=== PATIENT | male | born 1965 | race Two or more races ===

== ENCOUNTER 2023-03-15 13:05 | Emergency (ER) | payer OTHER, SELFPAY ==
--- NOTE | ~2023-03-15 | XR_ITS ---
EXAMINATION: XR HAND, LEFT CLINICAL INFORMATION: Third finger laceration. COMPARISON: None available. TECHNIQUE: PA, lateral, and oblique views of the left hand. An indicator arrow points to the third digit. FINDINGS: Mild soft tissue swelling is seen. There is no acute fracture or dislocation. A tiny density is seen superficially in the soft tissues superficial to the ulnar aspect of the proximal interphalangeal joint of the third digit. There is no acute fracture or dislocation. The carpal bones are normally aligned. The distal radius and ulna are intact. XR/XR hand LT min 3V IMPRESSION: 1. Mild soft tissue swelling without acute underlying osseous abnormality. 2. Tiny density superficially in the soft tissues superficial to the ulnar aspect of the proximal interphalangeal joint of the third digit is of indeterminate age. A radiopaque foreign body cannot be excluded.
[2023-03-15 13:40] VITALS: BP 115/71; PULSE 58; RESP 18; TEMP 37; O2SAT 98; BMI 27.4
--- NOTE | 2023-03-15 13:40 | ED.GENADULT ---
HPI - General Adult General Chief complaint: Wound/Laceration Stated complaint: l hand laceration Time Seen by Provider: 03/15/23 17:22 History of Present Illness HPI narrative: Patient complains of lacerations to ring and middle fingers of the left hand from a sharp piece of metal at home, no numbness no weakness no tingling, no other complaint Related Data Allergies Allergy/AdvReac Type Severity Reaction Status Date / Time No Known Allergies Allergy Verified 03/15/23 13:43 [No Known Allergies*] PENDING SALE TO [facility] Past Medical History Source: nursing notes reviewed Social History Social History Smoked in Last 30 Days: No Use of substances other than those prescribed or required for medical reasons: No Advance Directives: No Advance Directives Information Provided: Yes Physical Exam ED Vital Signs: Vital Signs - 24 hr 03/15/23 13:40 Temperature 98.6 F Pulse Rate 58 Respiratory Rate 18 Blood Pressure 115/71 Pulse Oximetry 98 Oxygen Delivery Method Room Air BMI result Body Mass Index 27.4 General appearance no acute distress Head normocephalic atraumatic Neck is supple Respiratory no distress Extremities full range of motion x4 including left hand Left hand had a 2 cm laceration gaping on the left middle finger but there was no tendon deficit on either extension or flexion, neurovascular intact distal, full range of motion The ring finger had a superficial laceration on the middle phalanx and again all tendon function normal neurovascular intact Course Course Course Narrative: This is an RME: Additional HPI, ROS, PE not included below will be deferred to primary provider. This is a [id number] presenting to the emergency department with a complaint of left third and fouth finger laceration which occurred today. He was moving a piece of metal and lacerated these two fingers. Has numbness/tingling in both fingertips, good ROM. Partial thickness laceration noted to third and fourth DIPs. Will need to be cleansed and will likely need sutures. unsure if TDAP is UTD. Plan: xray left hand and tdap ordered. The 4th finger did not need repair and a dressing was placed The 3rd finger procedure note the laceration was cleansed and irrigated Digital block with good anesthesia with 6 cc of 1% lidocaine Sutures were placed in 2 cm left 3rd finger laceration, finger was moving normally with full tendon function, bleeding controlled and dressing applied Medications Administered Discontinued Medications Generic Name Dose Route Start Last Admin Trade Name Freq PRN Reason Stop Dose Admin Diphtheria/Tetanus/Acell Pertussis 0.5 ml 03/15/23 13:40 03/15/23 18:25 Diphth,Pertus(Acell),Tet Adult 0.5 Ml Syringe IM 03/15/23 13:41 0.5 ml .ONCE ONE Administration Lidocaine HCl 5 ml 03/15/23 18:17 03/15/23 18:26 Lidocaine Hcl 1 % Mpf 5 Ml Vial SUBCUT 03/15/23 18:18 5 ml ONCE ONE Administration Lidocaine HCl 5 ml 03/15/23 18:17 03/15/23 18:26 Lidocaine Hcl 1 % Mpf 5 Ml Vial SUBCUT 03/15/23 18:18 5 ml ONCE ONE Administration Discharge Plan Discharge Clinical Impression: Laceration Patient Disposition: Home, Self-Care Additional Instructions: Stitches out in 7 days Return any time redness swelling any sign of infection You got a tetanus shot today Interventions: ED Discharge Assessment Last Done: 03/15/23 19:02 Discharge Date/Time: 03/15/23 19:02
[2023-03-15] MEDS: Diphth,Pertus(ACell),Tet Adult 0.5 ML SYRINGE IM (18:25)
[2023-03-15] MEDS: Lidocaine HCl 1 % MPF 5 ML VIAL SUBCUT ×2 (18:26)
== END 2023-03-15 19:02 | disposition home or self-care (01) ==
PROVIDERS: Emergency Provider Internal Medicine
DX: S61.412A Laceration without foreign body of left hand, initial encounter (principal); S60.512A Abrasion of left hand, initial encounter; W26.9XXA Contact with unspecified sharp object(s), initial encounter; Y93.9 Activity, unspecified; Y92.009 Unspecified place in unspecified non-institutional (private) residence as the place of occurrence of the external cause; Y99.9 Unspecified external cause status; Z23 Encounter for immunization
CPT/HCPCS: 12041; 73130; 90471; 90715; 99284

== ENCOUNTER → 2023-09-21 09:15 | Day surgery (SDC) | payer OTHER, SELFPAY ==
[2023-09-19 12:19] VITALS: BMI 25.4
--- NOTE | 2023-09-21 10:23 | ECG_ITS ---
Test Reason : arrythmia Blood Pressure : / mmHG Vent. Rate : 082 BPM Atrial Rate : 082 BPM P-R Int : 162 ms QRS Dur : 096 ms QT Int : 380 ms P-R-T Axes : 065 -29 032 degrees QTc Int : 443 ms Normal sinus rhythm Normal ECG When compared with ECG of 10-NOV-2017 02:01, Vent. rate has increased BY 31 BPM Nonspecific T wave abnormality no longer evident in Anterolateral leads Referred By: Lisa Osorio Electronically Signed By:ALFRED BAKER
[2023-09-21 10:24] VITALS: BP 70/51; PULSE 23; RESP 18; TEMP 36.2; O2SAT 98
[2023-09-21 10:43] LABS: Glucose, Whole Blood 89 mg/dL (60-115)
--- NOTE | 2023-09-21 11:48 | PC.NURSE ---
Pt arrived to pre-op for planned EGD procedure with Dr. Awad. Pt ambulated into unit with no s/s of distress. Medical hx reviewed. Pt proceeded to prepared for procedure and was placed on monitor. Pt resting in bed and was noted to be bradycardic in the 50's. Pt then had a recorded heart rate drop to 23. Monitor appeared to be junctional. This service writer engaged pt in conversation and heart rate did not improve. Pt was diaphoretic and c/o abdominal discomfort. Pt denies chest pain at this time. POC 89. Dr Osorio bedside and administered 0.5mg of Atropine. BP at this time 70/51. 02 2L placed via NC and HOB elevated. Heart rate still remained low. Dr Man then administered 10 mg IV Ephedrine. Pt because nauseous and was vomiting. IV Zofran 4mg administered with positive effect. 12 lead EKG performed and read bedside by Dr. Osorio. At this time Dr Osorio contacted Dr Howard for transfer to ED. Pt transported to ED with pacer pads in place by this service writer and Dr Osorio. Bedside report given to Qi BELTRAN in ED. This service writer called and updated with current status. All belongings transported to ED with pt.
== END ==
PROVIDERS: Visit Provider Internal Medicine Gastroenterology
DX: R10.10 Upper abdominal pain, unspecified (principal); Z53.09 Procedure and treatment not carried out because of other contraindication; R00.1 Bradycardia, unspecified
CPT/HCPCS: 82947; 93005; J2405

== ENCOUNTER 2023-09-21 10:45 | Observation (INO) | payer OTHER, SELFPAY ==
[2023-09-21 10:48] VITALS: BP 134/69; PULSE 71; RESP 20; TEMP 36.8; O2SAT 96; BMI 26.6
--- NOTE | 2023-09-21 11:03 | ECG_ITS ---
Test Reason : bradycardia Blood Pressure : / mmHG Vent. Rate : 074 BPM Atrial Rate : 074 BPM P-R Int : 136 ms QRS Dur : 098 ms QT Int : 396 ms P-R-T Axes : 005 -08 031 degrees QTc Int : 439 ms Normal sinus rhythm Normal ECG When compared with ECG of 21-SEP-2023 10:22, No significant change was found Referred By: Mark Howard Electronically Signed By:ALFRED BAKER
--- NOTE | 2023-09-21 11:05 | ED.GENADULT ---
HPI - General Adult General Chief complaint: General Medical Stated complaint: Low hr/Low blood pressure Time Seen by Provider: 09/21/23 10:56 Source: patient, RN notes reviewed and other (anesthesiology) Mode of arrival: wheelchair Limitations: no limitations History of Present Illness HPI narrative: Patient with bradycardia to 20 with hypotension while in preop. Anesthesia gave him atropine and phenylephrine. He recently was on a Holter monitor Onset (ago): minute(s) Severity: severe Related Data Home Medications Medication Instructions Recorded Confirmed omeprazole 20 mg capsule,delayed 20 mg PO DAILY 09/19/23 09/19/23 release sertraline 100 mg tablet 100 mg PO DAILY 09/19/23 09/19/23 Allergies Allergy/AdvReac Type Severity Reaction Status Date / Time No Known Allergies Allergy Verified 09/21/23 09:44 [No Known Allergies*] Review of Systems Review of Systems: Yes all other systems are reviewed and are negative Neurologic: Denies Sensory deficit (Neuro) PMFSH Past Medical History Medical History Palpitations Psoriasis Hyperlipidemia PTSD (post-traumatic stress disorder) Depression Hypercalcemia Surgical History S/P left inguinal herniorrhaphy Hx of elbow surgery H/O colonoscopy Social History Social History Patient Tobacco Use Status: Current someday Tobacco user Cigarettes Per Day: 2 Smoked in Last 30 Days: No Use of substances other than those prescribed or required for medical reasons: No Advance Directives: No Advance Directives Information Provided: Yes Physical Exam ED Vital Signs: Vital Signs - 24 hr 09/21/23 10:48 Temperature 98.3 F Pulse Rate 71 Respiratory Rate 20 Blood Pressure 134/69 Pulse Oximetry 96 Oxygen Delivery Method Room Air BMI result Body Mass Index 26.6 Const General: healthy appearing Nutritional Appearance: average body habitus Orientation/consciousness: oriented to person and patient oriented x3 Limitations: no limitations HENMT Head: Yes normal to inspection Ears: external ears normal General nose exam: Normal external nose present Mouth: Normal oral and palatal mucosa present and oropharynx normal Throat: Yes posterior oropharynx normal Eyes General: appearance normal, both eyes and all related structures Neck Neck: Yes normal visual inspection Chest Chest palpation & inspection: normal inspection of the chest Resp Auscultation: clear to auscultation bilaterally Cardio Jugular venous distension: no JVD Rate: regular rate Rhythm: regular rhythm Heart sounds: S1 normal heart sound present and S2 normal heart sound present GI Inspection: Yes normal to inspection Palpation (GI): Soft to palpation, nontender and No hepatosplenomegaly present Auscultation: normal bowel sounds General: Yes no CVA tenderness Back/Spine/Pelvis Back: no CVA tenderness Skin General skin exam: no rashes or lesions noted Neuro General: oriented to person and patient oriented x3 Cranial nerves: Yes CN's II-XII intact bilaterally Motor exam (neuro): 5/5 motor strength present throughout Sensory Exam: No Sensory deficit (Neuro) Extrem General: Yes normal to inspection Psych Appearance: grossly normal Course Reevaluation(s) Reevaluation #1: Sent to the ED from the OR will admit Time: 12:05 Medical Decision Making Differential Diagnosis Differential Diagnoses: The differential diagnosis associated with the presentation includes (bradycardia, sick sinus, hypotension) Admission/Observation Consideration of admission/observation: Escalation of care including admission/observation considered (upon arrival patient was considered for admission) Consult Healthcare Provider Management of the patient was discussed with: Hospitalist and Paint And Table Edger (cardiology, anesthesia) Lab Data MDM Lab Attestation statement: I reviewed the patient's lab results. 09/21/23 11:47 09/21/23 11:47 Labs: Lab Results 09/21/23 Range/Units 11:47 WBC 9.5 (4.8-10.8) X10*3/uL RBC 4.83 (4.60-5.80) X10*6/uL Hgb 13.0 L (14.0-18.0) g/dl Hct 40.1 L (42.0-52.0) % MCV 83.0 (80.0-98.0) fL MCH 26.9 L (27.0-33.0) pg MCHC 32.4 (31.0-36.0) g/dl RDW 13.1 (11.0-16.0) % Plt Count 216 (160-400) X10*3/uL MPV 11.0 (9.4-12.4) fL Immature Gran % (Auto) 0.2 (0.0-0.4) % Neut % (Auto) 67.6 (45-73) % Lymph % (Auto) 25.1 (20-40) % [place] % (Auto) 5.8 (2-11) % Eos % (Auto) 1.1 (0-4) % Baso % (Auto) 0.2 (0-2) % Lymph # (Auto) 2.4 (1.2-4.9) X10*3/uL [place] # (Auto) 0.6 (0.1-1.2) X10*3/uL Eos # (Auto) 0.1 (0.0-0.4) X10*3/uL Baso # (Auto) 0.0 (0.0-0.2) X10*3/uL Abs Immat Gran (auto) 0.02 (0.00-0.03) X10*3/uL Absolute Neuts (auto) 6.4 (2.0-8.3) x10*3/uL Absolute Nucleated RBC 0.000 (0.0-0.012) X10*3/uL Nucleated RBC % (auto) 0.0 (0.0-0.2) /100WBC Independent Interpretation I performed an independent interpretation of an: EKG (sinus [address] or twave changes) Independent Historian Clinical information obtained from an independent historian. History obtained from or confirmed by: Spouse and Other (anesthesia) External Record Review External record reviewed: Outpatient record Discharge Plan Discharge Clinical Impression: Bradycardia Patient Disposition: Admitted As Inpatient
--- NOTE | 2023-09-21 11:39 | CA_ITS ---
Transthoracic Echocardiogram Patient (Last, First, Middle): Michael Oliveros, Gender: Male Date of : 1965 Age: 58 Procedure Date: 09/21/2023 Procedure Type: Transthoracic Echocardiogram Location: ER Height: 170.18 cm Weight: 77.11 kg BSA: 1.89 m2 Heart Rate: bpm BP: 113 / 60 mmHg Cement Finisher Apprentice: Referring MD: Mark Howard MD Symptoms: severe bradycardia Study Quality: Fair ECG Rhythm: Sinus Conclusions: - The left ventricular systolic function is normal. The calculated ejection fraction is 67% by biplane method. - No obvious valvular pathology seen on this study. Findings Left Ventricle Normal left ventricular cavity size. There is mildly increased left ventricular wall thickness. The left ventricular systolic function is normal. The calculated ejection fraction is 67% by biplane method. There is no evidence of regional wall motion abnormalities. Diastolic function is normal for age. Right Ventricle Mildly increased right ventricular cavity size. There is normal right ventricular systolic function. Atria Both atria are normal in size. Aortic Valve There is a normal trileaflet aortic valve. There is no aortic valve stenosis. There is no aortic valve regurgitation. Mitral Valve The mitral valve appears normal. There is trace mitral valve regurgitation. There is no mitral valve stenosis. Pulmonic Valve The pulmonic valve is likely normal. Tricuspid Valve Normal tricuspid valve structure. There is trace tricuspid valve regurgitation. There is no evidence of pulmonary hypertension. Great Vessels The asc aorta is normal in size. Venous The inferior vena cava is normal in size and collapses greater than 50% with inspiration. Pericardium/Pleural There is no evidence of pericardial effusion. Prior Study Comparison No prior study available for comparison. Recommendations, Care & Conclusions No obvious valvular pathology seen on this study. Measurements 2D Linear Measurements IVSd: 1.07 0.6-0.9/0.6-1.0 cm LVIDd: 4.73 3.9-5.3/4.2-5.9 cm LVIDd Index: 2.50 2.4-3.2/2.2-3.1 cm/m2 LVIDs: 3.13 2.0-3.6 cm LVPWd: 1.06 0.7-1.1 cm Ao Root: 2.80 2.1-3.5 cm LA Diam: 3.70 2.7-3.8/3.0-4.0 cm LAIDs Index: 1.96 1.5-2.3 cm/m2 LV Mass: 225.69 67-162/88-224 g LV Mass Index: 119.41 43-95/49-115 g/m2 LVOT Diam: 2.20 3.0+(-)1.3 cm 2D Systolic Function EF 4C: 62.30 >55% EF 2C: 69.40 >55% EF BiP: 67.00 >55% Mitral Valve MV Pk E: 0.77 MV PK A: 0.70 MV Decel Time: 175.00 E/A: 1.10 E'Lateral: 7.94 E'Medial: 8.92 E/E' Med: 8.60 E/E' Lat: 9.70 PHT: 51.00 MVA PHT: 4.31 Decel [place]: 4.39 Aortic Valve AoV Pk Edvin: 1.56 AoV Mn Edvin: 0.90 AoV VTI: 0.32 AoV Pk Grad: 10.00 Aov Mn Grad: 4.00 ANGE Cont.VTI: 3.31 LVOT LVOT Pk Edvin: 1.42 LVOT Mn Edvin: 0.85 LVOT VTI: 0.28 LVOT Pk Grad: 8.00 LVOT Mn Grad: 4.00 LVOT Diam: 2.20 LVOT Area: 3.80 Diastolic Function MV Pk E: 0.77 MV Pk A: 0.70 E/A: 1.10 E'Medial: 8.92 E/E' Med: 8.60 E' Laterial: 7.94 E/E' Lat: 9.70 Right Ventricle TAPSE (mm): 28.00 TVS' Edvin: 12.00 Tricuspid Valve TR Pk Edvin: 2.07 TR Pk Grad: 17.00 RA Press: 3.00 RVSP: 20.00 Great Vessels Aorta Ao Root-2D: 2.80 2.0-3.7 cm Ao Asc: 3.00 2.1-3.4 cm Pulmonary Valve PV Pk Edvin: 0.99 Peak PV Grad: 4.00 Updated in Other Vendor System with Status of Final Parag Boston MD electronically signed on 09/21/2023 3:53:34 PM with status of Final
[2023-09-21 11:52] LABS: MANUAL DIFF FLAG NO
[2023-09-21 11:56] LABS: Basophils Percent Auto 0.2 % (0-2); Eosinophils Absolute Auto 0.1 X10*3/uL (0.0-0.4); Eosinophils Percent Auto 1.1 % (0-4); Hematocrit 40.1 % (42.0-52.0); Imm Gran Abs Auto 0.02 X10*3/uL (0.00-0.03); Imm Gran Pct Auto 0.2 % (0.0-0.4); Lymphocytes Absolute Auto 2.4 X10*3/uL (1.2-4.9); Lymphocytes Percent Auto 25.1 % (20-40); Mean Corpuscular HGB Conc 32.4 g/dl (31.0-36.0); Mean Corpuscular Hemoglobin 26.9 pg (27.0-33.0); Monocytes Absolute Auto 0.6 X10*3/uL (0.1-1.2); Monocytes Percent Auto 5.8 % (2-11); Neutrophils Absolute Auto 6.4 x10*3/uL (2.0-8.3); Neutrophils Percent Auto 67.6 % (45-73); Platelet Count 216 X10*3/uL (160-400); Red Blood Count 4.83 X10*6/uL (4.60-5.80); Red Cell Distribution Width 13.1 % (11.0-16.0); White Blood Count 9.5 X10*3/uL (4.8-10.8)
[2023-09-21 12:11] LABS: Anion Gap 9 (12-20); Blood Urea Nitrogen 22 mg/dL (9-16); Calcium 9.1 mg/dL (8.4-10.2); Carbon Dioxide 30 mmol/L (22-29); Chloride 107 mmol/L (96-108); Creatinine Clr Calc Pharmacy 79.9; Estimated Glomerular Filt Rate > 60; Glucose Random 106 mg/dL (60-115); Potassium 4.1 mmol/L (3.3-5.1); Sodium 142 mmol/L (135-145)
--- NOTE | 2023-09-21 12:13 | PM.IMHP ---
History of Present Illness Date of Service: 09/21/23 Attending physician on admission: Troy Gonzalez Chief Complaint: Bradycardia, hypotension Pt is a 58-year-old male without any significant past who presents to the ED bradycardia as low as 23 and hypotension as low as 70/51 while in preop for an outpatient EGD. Patient had been having intermittent stomach pains and unintentional weight loss of 20 lb since July of 2022. PCP had ordered an outpatient CT that found colitis. Pt treated with antibiotics, however still experienced intermittent abdominal pain. Patient also said he had black colored stools 2-3 weeks ago. PCP then ordered an outpatient EGD to evaluate for possible gastric ulcers/peptic ulcer disease. While in preop patient was prepped, had IV inserted, and was awaiting going to the operating room when nursing noticed that patient was bradycardic into the 20s and hypotensive in the 70/50s. Patient became diaphoretic, ashen colored, and felt nauseous. Nursing staff noted that he seemed to be dropping his P waves and in a junctional rhythm on the monitor, though the rhythm strips did not capture this. Anesthesia was called in in the administered atropine 0.5 mg atropine, ephedrine 10 mg, and Zofran 4 mg. Patient currently resting comfortably in bed at time of interview and exam. Says he has a slight headache but otherwise has no acute medical complaints. Denies chest pain/pressure, palpitations. No shortness of breath. No nausea, vomiting. No lightheadedness or dizziness. Of note, patient states that he has been feeling intermittent palpitations for the past year or so. PCP had ordered a 30 day Holter monitor that was completed approximately 2 weeks ago. Patient has yet to receive any data about what the monitor recorded. He has not followed by Cardiology or any other specialist, but does see his PCP regularly. In the ED labs were grossly unremarkable. Negative troponin. Vital signs stable, including BP of 134/69 and HR of 71. Monitor with NSR. Initial EKG demonstrated normal sinus rhythm with rate of 82 and without evidence of significant ST elevation or depression, and repeat EKG 30 minutes later also showed normal sinus rhythm with rate of [address] elevations or depressions. Pt will be admitted to the hospital under observation for evaluation of symptomatic bradycardia and hypotension. Review of Systems Review of Systems: Bradycardia in the 20s Hypotension with SBP in 70s Diaphoresis Nausea Occasional palpitations for the past year Intermittent abdominal pain Unintentional weight loss for the past year plus [facility] Medical History Palpitations Psoriasis Hyperlipidemia PTSD (post-traumatic stress disorder) Depression Hypercalcemia Surgical History S/P left inguinal herniorrhaphy Hx of elbow surgery H/O colonoscopy Social History Patient Tobacco Use Status: Current someday Tobacco user Cigarettes Per Day: 2 Smoked in Last 30 Days: No Use of substances other than those prescribed or required for medical reasons: No Advance Directives: No Advance Directives Information Provided: Yes Meds Allergies Allergy/AdvReac Type Severity Reaction Status Date / Time No Known Allergies Allergy Verified 09/21/23 09:44 [No Known Allergies*] Home Medications Medication Instructions Recorded Confirmed Last Taken Type No Known Home Meds 09/21/23 09/21/23 Unknown History Physical Exam Vital Signs and Narrative: Vital Signs: Last Vital Signs Temp 98.3 F 09/21/23 10:48 Pulse 71 09/21/23 10:48 Resp 20 09/21/23 10:48 BP 134/69 09/21/23 10:48 Pulse Ox 96 09/21/23 10:48 O2 Del Method Room Air 09/21/23 10:48 BMI result Body Mass Index 26.6 Constitutional: Alert, in no acute distress. Mental Status: Oriented to person, place and time. Eyes: Pupils are equal, round, and reactive to light. Ear, Nose, and Throat: Oropharynx clear, mucous membranes moist. Ears and nose without deformities. Trachea midline. Respiratory: Clear to auscultation bilaterally. No wheezing, rales, or rhonchi. Cardiovascular: S1, S2 regular. No murmurs, rubs, or gallops. Gastrointestinal: Abdomen soft, non-tender, non-distended. Normal bowel sounds. Neurologic: Cranial nerves II-XII are grossly intact bilaterally. No focal neurological deficits. Moves all extremities spontaneously. Skin: Warm, dry. Musculoskeletal: No cyanosis or clubbing. Extremities: No edema. Psychiatric: Normal mood and affect. Results Labs 09/21/23 11:47 09/21/23 11:47 Labs: Laboratory Results - last 24 hr 09/21/23 11:47 MCV 83.0 MCH 26.9 L MCHC 32.4 RDW 13.1 Plt Count 216 MPV 11.0 Immature Gran % (Auto) 0.2 Neut % (Auto) 67.6 Lymph % (Auto) 25.1 [place] % (Auto) 5.8 Eos % (Auto) 1.1 Baso % (Auto) 0.2 Lymph # (Auto) 2.4 [place] # (Auto) 0.6 Eos # (Auto) 0.1 Baso # (Auto) 0.0 Abs Immat Gran (auto) 0.02 Absolute Neuts (auto) 6.4 Absolute Nucleated RBC 0.000 Nucleated RBC % (auto) 0.0 Anion Gap 9 L Estim Creat Clear Calc 79.9 Estimated GFR > 60 Random Glucose 106 Calcium 9.1 Assessment and Plan (1) Bradycardia: Status: Acute (2) Hypotension: Status: Acute Plan Pt is a 58-year-old male without any significant past who presents to the ED bradycardia as low as 23 and hypotension as low as 70/51 while in preop for an outpatient EGD. Pt will be admitted to the hospital under observation for evaluation of symptomatic bradycardia and hypotension. Symptomatic bradycardia HR in 20s, BP 70/50s with in preop for outpatient EGD Pt diaphoretic, ashen-colored, nauseous Given atropine, ephedrine, and Zofran by Anesthesia Pt finished 30-day Holter monitor for palpitations two week ago Currently stable, in normal sinus rhythm, labs WNL, troponin negative Will get echocardiogram Will check TSH Pacer pads in lace Cardiology consult Monitor on telemetry Chronic abdominal pain EGD deferred Followup outpatient to reschedule Full Code Attending:? DVT Prophylaxis: Lovenox Pt will require a hospitalization of at least two nights for treatment of? with . Quality Stroke Does the patient have a stroke diagnosis?: No VTE Prior VTE?: No VTE Risk Level:: Medical - moderate - high VTE Device Contraindication: Treatment Not Indicated VTE Drug Contraindication: N/A - Med Ordered
--- NOTE | 2023-09-21 12:28 | PHA.MEDREC ---
Pharmacy Consult ? Medication Reconciliation Pharmacy has completed the medication reconciliation. Spoke to patient at bedside, stated he stopped taking sertraline when he was taking antibiotics a while back and never continued. No OTC meds
[2023-09-21 12:56] LABS: Troponin-I High Sensitivity < 2.7 ng/L (<3.5-35.0)
[2023-09-21 13:40] VITALS: BP 104/56; PULSE 70; RESP 21; O2SAT 97
[2023-09-21] MEDS: Enoxaparin Sodium 40 MG/0.4 ML SYRINGE SUBCUT (13:41)
[2023-09-21 13:54] VITALS: BP 104/56; PULSE 68; RESP 20; TEMP 36.8; O2SAT 99
[2023-09-21 14:14] LABS: TSH reflex Free T4 1.34 uIU/mL (0.32-4.0)
--- NOTE | 2023-09-21 14:21 | P.CONCA_ITS ---
History of Present Illness History of Present Illness Date of Service: 09/21/23 Chief complaint: Symptomatic bradycardia Narrative: This cardiology consultation regarding bradycardia. Discussed with the short- stay nurse from anesthesia as well as ER physician. Patient actually came for an elective endoscopy. He was okay initially but then a few minutes after receiving his IV access his pulse rate dropped into the 20s and 30s. According to nurse, it was initially sinus bradycardia but then she also notices junctional rhythm on the monitor. His blood pressure dropped into the 70s. She is not sure if she is vagal as it happened several minutes after the IV and not immediately. Any case, anesthesiologist was called and then he got atropine as well as ephedrine and Zofran and that he was eventually sent to the ER. Currently, he states he is feeling fine. Blood sugar was in the normal range. Otherwise, apparently has had some palpitations recently and that led to a Holter monitor. He had that for about 30 days. He is awaiting the report. No other cardiac issues in the past. No angina or anything along those lines. Review of Systems 2 Review of Systems: Yes all other systems are reviewed and are negative Constitutional: Constitutional: Reports as per HPI and Reports no additional constitutional complaints Eyes: Eyes: Reports as per HPI and Denies no additional eye complaints ENT: Denies system reviewed and no additional complaints, except as documented and Reports as per HPI Cardiovascular: Cardiovascular: Reports as per HPI, Reports no additional cardiovascular complaints, Denies acrocyanosis, Denies cool extremities, Denies chest pain, Denies leg edema, Denies lightheadedness, Denies palpitations and Denies dyspnea Respiratory: Respiratory: Reports as per HPI, Denies no additional respiratory complaints and Denies dyspnea Gastrointestinal: Gastrointestinal: Reports as per HPI and Denies no additional gastrointestinal complaints Genitourinary: Genitourinary: Reports no additional male genitourinary complaints and Reports as per HPI Musculoskeletal: Musculoskeletal: Reports no additional musculoskeletal complaints and Reports as per HPI Integumentary/Breasts: Skin/Breast: Reports system reviewed and no additional complaints, except as docu Neurologic: Reports system reviewed and no additional complaints, except as documented and Reports as per HPI Psychiatric: Psychiatric: Reports no additional psychiatric complaints and Reports as per HPI Endocrine: Endocrine: Reports no additional endocrine complaints, Reports as per HPI and Denies palpitations Hematologic/Lymphatic: Hematologic/Lymphatic: Reports no additional hematologic/lymphatic complaints and Reports as per HPI Allergic/Immunologic: Allergic/Immunologic: Reports no additional allergic/immunologic complaints and Reports as per HPI PMFSH Past Medical History Medical History Palpitations Psoriasis Hyperlipidemia PTSD (post-traumatic stress disorder) Depression Hypercalcemia Family History Pertinent family history: No major cardiovascular issues in the family according to patient. Surgical History Surgical History S/P left inguinal herniorrhaphy Hx of elbow surgery H/O colonoscopy Social History Social History Patient Tobacco Use Status: Current someday Tobacco user Cigarettes Per Day: 2 Smoked in Last 30 Days: No Use of substances other than those prescribed or required for medical reasons: No Advance Directives: No Advance Directives Information Provided: Yes Meds Allergies Allergy/AdvReac Type Severity Reaction Status Date / Time No Known Allergies Allergy Verified 09/21/23 09:44 [No Known Allergies*] Active Medications: Current Medications Acetaminophen (Acetaminophen 325 Mg Tablet) 650 mg PO Q6H PRN PRN Reason: Pain, Mild (Pain Scale 1-3) Benzonatate (Benzonatate 100 Mg Capsule) 100 mg PO TID PRN PRN Reason: Cough Docusate Sodium (Docusate Sodium 100 Mg Capsule) 100 mg PO DAILY PRN PRN Reason: Constipation Enoxaparin Sodium (Enoxaparin Sodium 40 Mg/0.4 Ml Syringe) 40 mg SUBCUT Q24H [facility] Last Admin: 09/21/23 13:41 Dose: 40 mg Melatonin (Melatonin 3 Mg Tablet) 6 mg PO BEDTIME PRN PRN Reason: Insomnia Ondansetron HCl (Ondansetron Hcl 4 Mg/2 Ml Vial) 4 mg IVPUSH Q8H PRN PRN Reason: Nausea and Vomiting Sodium Chloride (0.9 % Sodium Chloride Flush 3 Ml Syringe) 3 ml IVFLUSH QSHIFT [facility] Home Medications Medication Instructions Recorded Confirmed Last Taken Type No Known Home Meds 09/21/23 09/21/23 Unknown History Physical Exam 2 Vital Signs: Vital Signs: Last Vital Signs Temp 98.3 F 09/21/23 13:54 Pulse 68 09/21/23 13:54 Resp 20 09/21/23 13:54 BP 104/56 L 09/21/23 13:54 Pulse Ox 99 09/21/23 13:54 O2 Del Method Room Air 09/21/23 13:54 BMI result Body Mass Index 26.6 Const: General: comfortable and no acute distress O rientation/consciousness: patient oriented x3 HEENT: Other: Unremarkable Head: Yes normal to inspection Neck: Neck: Yes normal visual inspection Chest: Chest palpation & inspection: normal inspection of the chest Resp: Auscultation: clear to auscultation bilaterally Cardio: Palpation: normal PMI Heart sounds: S1 normal heart sound present, S2 normal heart sound present, no gallops, no murmurs and no rubs GI: Palpation (GI): Soft to palpation Back/Spine/Pelvis: Other: unremarkable Skin: General skin exam: no rashes or lesions noted Neuro: General: patient oriented x3 Extrem: General: Yes normal to inspection Psych: Mental Status: mental status grossly normal Objective Labs and Meds 09/21/23 11:47 09/21/23 11:47 Lab results: Laboratory Results - last 24 hr 09/21/23 11:47 WBC 9.5 RBC 4.83 Hgb 13.0 L Hct 40.1 L MCV 83.0 MCH 26.9 L MCHC 32.4 RDW 13.1 Plt Count 216 MPV 11.0 Immature Gran % (Auto) 0.2 Neut % (Auto) 67.6 Lymph % (Auto) 25.1 [place] % (Auto) 5.8 Eos % (Auto) 1.1 Baso % (Auto) 0.2 Lymph # (Auto) 2.4 [place] # (Auto) 0.6 Eos # (Auto) 0.1 Baso # (Auto) 0.0 Abs Immat Gran (auto) 0.02 Absolute Neuts (auto) 6.4 Absolute Nucleated RBC 0.000 Nucleated RBC % (auto) 0.0 Sodium 142 Potassium 4.1 Chloride 107 Carbon Dioxide 30 H Anion Gap 9 L BUN 22 H Creatinine 0.93 Estim Creat Clear Calc 79.9 Estimated GFR > 60 Random Glucose 106 Calcium 9.1 Troponin I High Sens < 2.7 TSH 1.34 ECG Interpretation: EKG with sinus rhythm at 74/Min; no significant ST-T changes and otherwise unremarkable. Normal [place] and corrected QT. from the available strips from the actual event, there is clearly sinus bradycardia but do not see any junctional event. That strip was apparently not recorded. He does go quite bradycardic into about 30/Min. Currently in the normal range. Assessment and Plan (1) Bradycardia: Status: Acute (2) Hypotension: Status: Acute Plan Details of the event including the EKG strips reviewed. Discussed with the RN at the time of event as well as ER. It is possible that it is a vagal event but there was the several minutes labs between the IV access and the actual episode-about 10 minutes or so. Hence not entirely clear if it is still vasovagal or not. Certainly possible. He has never had any such issues in the past. Recommend at least 24 hours of inpatient monitoring. Will will try to figure out the outpatient monitor and get those recordings well. Echocardiogram is being completed and preliminary, normal EF. Will follow tomorrow. Discussed with family including at the bedside. Procedures Date of Service Date of Service: 09/21/23
[2023-09-21] MEDS: 0.9 % Sodium Chloride Flush 3 ML SYRINGE IVFLUSH ×2 (15:47→19:48)
[2023-09-21 19:46] VITALS: BP 133/63; PULSE 55; RESP 18; TEMP 36.8; O2SAT 98
[2023-09-21 23:26] VITALS: BP 137/69; PULSE 54; RESP 18; TEMP 36.9; O2SAT 98
[2023-09-22 03:16] VITALS: BP 130/74; PULSE 80; RESP 18; TEMP 36.7; O2SAT 97
[2023-09-22 07:04] LABS: Anion Gap 13 (12-20); Blood Urea Nitrogen 15 mg/dL (9-16); Calcium 9.9 mg/dL (8.4-10.2); Carbon Dioxide 29 mmol/L (22-29); Chloride 106 mmol/L (96-108); Creatinine Clr Calc Pharmacy 75.1; Estimated Glomerular Filt Rate > 60; Glucose Random 117 mg/dL (60-115); Potassium 4.2 mmol/L (3.3-5.1); Sodium 144 mmol/L (135-145)
[2023-09-22 07:08] VITALS: BP 132/73; PULSE 60; RESP 20; TEMP 36.9; O2SAT 97
[2023-09-22 07:11] LABS: Hemoglobin 14.3 g/dl (14.0-18.0); Mean Corpuscular HGB Conc 32.5 g/dl (31.0-36.0); Mean Corpuscular Hemoglobin 27.6 pg (27.0-33.0); Mean Corpuscular Volume 84.8 fL (80.0-98.0); Mean Platelet Volume 11.9 fL (9.4-12.4); Platelet Count 245 X10*3/uL (160-400); Red Blood Count 5.19 X10*6/uL (4.60-5.80); Red Cell Distribution Width 13.2 % (11.0-16.0); White Blood Count 9.2 X10*3/uL (4.8-10.8)
[2023-09-22] MEDS: 0.9 % Sodium Chloride Flush 3 ML SYRINGE IVFLUSH (09:12)
--- NOTE | 2023-09-22 10:55 | PM.PNCARD ---
Subjective Subjective Date of Service: 09/22/23 Interval history: He states he feels fine. No cardiac symptoms. Review of Systems Review of Systems Yes all other systems are reviewed and are negative Constitutional: Reports as per HPI and Reports no additional constitutional complaints Eyes: Reports as per HPI and Denies no additional eye complaints Denies system reviewed and no additional complaints, except as documented and Reports as per HPI Cardiovascular: Reports as per HPI, Reports no additional cardiovascular complaints, Denies acrocyanosis, Denies cool extremities, Denies chest pain, Denies leg edema, Denies lightheadedness, Denies palpitations and Denies dyspnea Respiratory: Reports as per HPI, Denies no additional respiratory complaints and Denies dyspnea Gastrointestinal: Reports as per HPI and Denies no additional gastrointestinal complaints Genitourinary: Reports no additional male genitourinary complaints and Reports as per HPI Musculoskeletal: Reports no additional musculoskeletal complaints and Reports as per HPI Skin/Breast: Reports system reviewed and no additional complaints, except as docu Reports system reviewed and no additional complaints, except as documented and Reports as per HPI Psychiatric: Reports no additional psychiatric complaints and Reports as per HPI Endocrine: Reports no additional endocrine complaints, Reports as per HPI and Denies palpitations Hematologic/Lymphatic: Reports no additional hematologic/lymphatic complaints and Reports as per HPI Allergic/Immunologic: Reports no additional allergic/immunologic complaints and Reports as per HPI Physical Exam Vital Signs: Last Vital Signs Temp 98.4 F 09/22/23 07:08 Pulse 60 09/22/23 07:08 Resp 20 09/22/23 07:08 BP 132/73 09/22/23 07:08 Pulse Ox 97 09/22/23 07:08 O2 Del Method Room Air 09/22/23 07:08 BMI result Body Mass Index 26.6 Const General: comfortable and no acute distress Orientation/consciousness: patient oriented x3 HEENT Other: Unremarkable Head: Yes normal to inspection Neck Neck: Yes normal visual inspection Chest Chest palpation & inspection: normal inspection of the chest Resp Auscultation: clear to auscultation bilaterally Cardio Palpation: normal PMI Heart sounds: S1 normal heart sound present, S2 normal heart sound present, no gallops, no murmurs and no rubs GI Palpation (GI): Soft to palpation Back/Spine/Pelvis Other: unremarkable Skin General skin exam: no rashes or lesions noted Neuro General: patient oriented x3 Extrem General: Yes normal to inspection Psych Mental Status: mental status grossly normal Objective Labs and Meds 09/22/23 06:01 09/22/23 06:01 Lab results: Laboratory Results - last 24 hr 09/21/23 09/22/23 11:47 06:01 WBC 9.5 9.2 RBC 4.83 5.19 Hgb 13.0 L 14.3 Hct 40.1 L 44.0 MCV 83.0 84.8 MCH 26.9 L 27.6 MCHC 32.4 32.5 RDW 13.1 13.2 Plt Count 216 245 MPV 11.0 11.9 Immature Gran % (Auto) 0.2 Neut % (Auto) 67.6 Lymph % (Auto) 25.1 [place] % (Auto) 5.8 Eos % (Auto) 1.1 Baso % (Auto) 0.2 Lymph # (Auto) 2.4 [place] # (Auto) 0.6 Eos # (Auto) 0.1 Baso # (Auto) 0.0 Abs Immat Gran (auto) 0.02 Absolute Neuts (auto) 6.4 Absolute Nucleated RBC 0.000 0.000 Nucleated RBC % (auto) 0.0 0.0 Sodium 142 144 Potassium 4.1 4.2 Chloride 107 106 Carbon Dioxide 30 H 29 Anion Gap 9 L 13 BUN 22 H 15 Creatinine 0.93 0.99 Estim Creat Clear Calc 79.9 75.1 Estimated GFR > 60 > 60 Random Glucose 106 117 H Calcium 9.1 9.9 D Troponin I High Sens < 2.7 TSH 1.34 Progress Note: A&P Assessment and plan (1) Bradycardia: Status: Acute (2) Hypotension: Status: Acute (3) Vasovagal syncope: Status: Acute Plan Available data reviewed. EKG strip from time of event showed sinus bradycardia. Supposed junctional rhythm strip was not recorded. Echocardiogram with LVEF of 67%; otherwise unremarkable. Outpatient 14 day Holter report noted. Average heart rate of 70/Min and minimal 44/Min. No symptoms triggered. Minimal supraventricular ectopy. Minimal ventricular ectopy. No significant bradycardia or AV block. Overall seems unremarkable. Based on the above, suspect likely just a vagal event. Could be related to IV access as there apparently couple of at times. Discussed with patient as well as to seek immediate medical help in case there is a recurrent symptom like yesterday-feeling presyncopal or cold, diaphoretic extra. Will arrange follow-up. Time Spent With Patient Time: Total time managing care of this patient today 40 minutes. This includes time spent in review of chart, laboratory data, imaging studies, review of telemetry, counseling patient, family, discussion with hospitalist, RN, documentation, coordination of care. Progress Note: Quality Stroke Does the patient have a stroke diagnosis?: No Procedures Date of Service Date of Service: 09/22/23
--- NOTE | 2023-09-22 11:04 | MHC.CM.PN ---
MANOLO 09/22. Pt lives at home with his spouse, is self-care. Goal is to return home, pt will transport himself home (car is in lot). No HCP, pt declined. PCP: Dr. Severino Lemon
--- NOTE | 2023-09-22 11:15 | PM.DS ---
DS: Providers Provider Date of Service: 09/22/23 Date of admission: 09/21/23 13:19 Primary care physician: Severino Lemon Consults: 09/21/23 13:19 Consult to Cardiology Routine Consulting Provider: [facility] Cardiovascular Services Reason for consultation: Symptomatic bradycardia in 20s in preop for EGD DS: Diagnosis Discharge Diagnosis (1) Bradycardia: Status: Acute (2) Hypotension: Status: Acute (3) Vasovagal syncope: Status: Acute DS: Summary Hospital Course Hospital Course: Chief Complaint: Bradycardia, hypotension Pt is a 58-year-old male without any significant past who presents to the ED bradycardia as low as 23 and hypotension as low as 70/51 while in preop for an outpatient EGD. Patient had been having intermittent stomach pains and unintentional weight loss of 20 lb since July of 2022. PCP had ordered an outpatient CT that found colitis. Pt treated with antibiotics, however still experienced intermittent abdominal pain. Patient also said he had black colored stools 2-3 weeks ago. PCP then ordered an outpatient EGD to evaluate for possible gastric ulcers/peptic ulcer disease. While in preop patient was prepped, had IV inserted, and was awaiting going to the operating room when nursing noticed that patient was bradycardic into the 20s and hypotensive in the 70/50s. Patient became diaphoretic, ashen colored, and felt nauseous. Nursing staff noted that he seemed to be dropping his P waves and in a junctional rhythm on the monitor, though the rhythm strips did not capture this. Anesthesia was called in in the administered atropine 0.5 mg atropine, ephedrine 10 mg, and Zofran 4 mg. Patient currently resting comfortably in bed at time of interview and exam. Says he has a slight headache but otherwise has no acute medical complaints. Denies chest pain/pressure, palpitations. No shortness of breath. No nausea, vomiting. No lightheadedness or dizziness. Of note, patient states that he has been feeling intermittent palpitations for the past year or so. PCP had ordered a 30 day Holter monitor that was completed approximately 2 weeks ago. Patient has yet to receive any data about what the monitor recorded. He has not followed by Cardiology or any other specialist, but does see his PCP regularly. In the ED labs were grossly unremarkable. Negative troponin. Vital signs stable, including BP of 134/69 and HR of 71. Monitor with NSR. Initial EKG demonstrated normal sinus rhythm with rate of 82 and without evidence of significant ST elevation or depression, and repeat EKG 30 minutes later also showed normal sinus rhythm with rate of [address] elevations or depressions. Pt will be admitted to the hospital under observation for evaluation of symptomatic bradycardia and hypotension. Hospital course: Patient was observed overnight with no further episodes of bradycardia or hypotension. He was evaluated by cardiology with working diagnosis of vasovagal episode and will have further work up on outpatient basis Time Attestation Discharge coordination time: Greater than 30 minutes Quality: Safe Use of Opioids Does Pt have an Active Cancer Diagnosis on the Problem List?: No Quality: Stroke Does the patient have a stroke diagnosis?: No Physical Exam Vital Signs: Vital Signs: Last Vital Signs Temp 98.4 F 09/22/23 07:08 Pulse 60 09/22/23 07:08 Resp 20 09/22/23 07:08 BP 132/73 09/22/23 07:08 Pulse Ox 97 09/22/23 07:08 O2 Del Method Room Air 09/22/23 07:08 BMI result Body Mass Index 26.6 DS: Data Data Completed and Pending Labs on day of discharge: Laboratory Results - last 24 hr 09/21/23 09/22/23 11:47 06:01 WBC 9.5 9.2 RBC 4.83 5.19 Hgb 13.0 L 14.3 Hct 40.1 L 44.0 MCV 83.0 84.8 MCH 26.9 L 27.6 MCHC 32.4 32.5 RDW 13.1 13.2 Plt Count 216 245 MPV 11.0 11.9 Immature Gran % (Auto) 0.2 Neut % (Auto) 67.6 Lymph % (Auto) 25.1 [place] % (Auto) 5.8 Eos % (Auto) 1.1 Baso % (Auto) 0.2 Lymph # (Auto) 2.4 [place] # (Auto) 0.6 Eos # (Auto) 0.1 Baso # (Auto) 0.0 Abs Immat Gran (auto) 0.02 Absolute Neuts (auto) 6.4 Absolute Nucleated RBC 0.000 0.000 Nucleated RBC % (auto) 0.0 0.0 Sodium 142 144 Potassium 4.1 4.2 Chloride 107 106 Carbon Dioxide 30 H 29 Anion Gap 9 L 13 BUN 22 H 15 Creatinine 0.93 0.99 Estim Creat Clear Calc 79.9 75.1 Estimated GFR > 60 > 60 Random Glucose 106 117 H Calcium 9.1 9.9 D Troponin I High Sens < 2.7 TSH 1.34 Discharge Plan Discharge Anticipated Discharge Date/Time: 09/22/23 11:13 Patient Disposition: Home, Self-Care Discharge Diagnosis: Hypotension, Bradycardia Referrals: Severino Lemon [Primary Care Provider] - 1 Week Discharge Medications: Continued No Known Home Meds Discharge Orders: Discharge Order (Routine); Ordered 09/22/23 Ordered By: Peewee Moraes Diet: Advance to usual diet Activity on Discharge: As tolerated Stand Alone Forms: Patient Portal Discharge page Care Plan Goals: further work up for for low heart rate Health Concerns: low heart rate and low blood pressure Plan of Treatment: To follow up with Dr. Boston for further testing EGD will need to be rescheduled at later time Assessment: as before Discharge Date/Time: 09/22/23 12:33
[2023-09-22 11:22] VITALS: BP 149/74; PULSE 58; RESP 20; TEMP 36.9; O2SAT 98
== END 2023-09-22 12:33 | disposition home or self-care (01) ==
LOC: HO.ED 12:02 → HO.EDOVER 13:29 → HO.IMC 16:54
PROVIDERS: Admitting Provider Student in an Organized Health Care Education/Training Program; Emergency Provider Emergency Medicine; PCP Internal Medicine; Visit Provider Internal Medicine
DX: R00.1 Bradycardia, unspecified (principal); I95.9 Hypotension, unspecified; R55 Syncope and collapse; E78.5 Hyperlipidemia, unspecified; E83.52 Hypercalcemia; R10.9 Unspecified abdominal pain
CPT/HCPCS: 36415; 80048; 84443; 84484; 85025; 85027; 93005; 93306; 96372; 99222; 99285; J1650

== ENCOUNTER → 2023-09-21 13:19 | Outpatient (BNV) | payer OTHER, SELFPAY | PROVIDERS: Admitting Provider Student in an Organized Health Care Education/Training Program; Emergency Provider Emergency Medicine; PCP Internal Medicine; Visit Provider Student in an Organized Health Care Education/Training Program | DX: R00.1 Bradycardia, unspecified (principal); I95.9 Hypotension, unspecified; R55 Syncope and collapse | CPT/HCPCS: 99222; 99239 ==

== ENCOUNTER → 2023-09-21 13:19 | Outpatient (BNV) | payer OTHER, SELFPAY | PROVIDERS: Admitting Provider Student in an Organized Health Care Education/Training Program; Emergency Provider Emergency Medicine; PCP Internal Medicine; Visit Provider Internal Medicine | DX: R00.1 Bradycardia, unspecified (principal); I95.9 Hypotension, unspecified; I49.9 Cardiac arrhythmia, unspecified | CPT/HCPCS: 93010; 93306; 99223; 99233 ==

== ENCOUNTER 2023-11-20 14:28 | Outpatient (AMB) | payer OTHER, SELFPAY ==
--- NOTE | 2023-11-20 14:41 | MHC.OFFVIS ---
Intake Vital Signs 11/20/23 14:43 Height 5 ft 7 in Weight 165 lb 5.547 oz BMI 25.9 BP 110/62 Blood Pressure Location Lt brachial Position Sitting Pulse 68 Intake Visit Reasons: [employer]/ [facility]/ preop egd /palpitations Intake Note: NPV Jewel Waxer Required: Yes Jewel Waxer Language: Lebanese Accompanied by: Self / Same As Patient Allergies No Known Allergies [No Known Allergies*] Allergy (Verified 09/21/23 09:44) Medication List - Last Reconciled 11/20/23 by Parag Boston MD omeprazole 20 mg PO BID sertraline 100 mg PO DAILY HPI HPI Comments History of Present Illness Details Michael returns for follow-up. To recall, he actually came to the hospital for an elective endoscopy. Initially, he was doing well but then after getting IV access, heart rate dropped into the 20s and 30s. Possible junctional rhythm but that was not recorded. Blood pressure also dropped into the 70s. Then he was sent to the ER and then admitted. Subsequently, discharged home and he has been doing fine. No new issues. No syncopal episodes. No known cardiac issues otherwise. [facility] Medical History Palpitations Psoriasis Hyperlipidemia PTSD (post-traumatic stress disorder) Depression Hypercalcemia Surgical History S/P left inguinal herniorrhaphy Hx of elbow surgery H/O colonoscopy Family History (Updated 11/20/23 @ 14:44 by Елена Salter) Mother No problems noted. Father No problems noted. Social History Patient Tobacco Use Status: Never used Tobacco Cigarettes Per Day: 2 service: No Review of Systems Const Denies chills, Denies daytime sleepiness, Denies fatigue, Denies fever(s), Denies frequent falls, Denies night sweats, Denies snoring, Denies weakness, Denies weight gain and Denies weight loss Eyes Denies loss of vision ENT Denies dizziness and Denies hearing loss Card Denies chest pain, Denies chest pain with activity, Denies syncope, Denies rapid heart rate, Denies edema, Denies claudication, Denies leg edema, Denies lightheadedness, Denies dyspnea on exertion and Denies orthopnea Resp Denies cough, Denies excessive phlegm production, Denies dyspnea on exertion, Denies snoring and Denies wheezing GI Denies abdominal pain, Denies hematochezia, Denies change in bowel habits, Denies change in stool character, Denies heartburn, Denies nausea and Denies vomiting Denies hematuria, Denies dysuria and Denies urinary frequency Musc Denies arthralgias, Denies muscle weakness, Denies numbness and Denies tingling Skin/Breast Denies nail changes and Denies rash Neuro Denies Abnormal speech present, Denies dizziness, Denies syncope, Denies frequent falls, Denies loss of vision, Denies memory loss, Denies numbness, Denies tingling and Denies weakness Psych Denies depression and Denies memory loss Endo Denies fatigue Aller/Immun Denies wheezing Physical Exam Vital Signs: Last Vital Signs Pulse 68 11/20/23 14:43 BP 110/62 11/20/23 14:43 BMI result Body Mass Index 25.9 Const General: comfortable and no acute distress Orientation/consciousness: patient oriented x3 HEENT Other: Unremarkable Head: Yes normal to inspection Neck Neck: Yes normal visual inspection Chest Chest palpation & inspection: normal inspection of the chest Resp Auscultation: clear to auscultation bilaterally Cardio Palpation: normal PMI Heart sounds: S1 normal heart sound present, S2 normal heart sound present, no gallops, no murmurs and no rubs GI Palpation (GI): Soft to palpation Back/Spine/Pelvis Other: unremarkable Skin General skin exam: no rashes or lesions noted Neuro General: patient oriented x3 Speech: No Abnormal speech present Extrem General: Yes normal to inspection Psych Mental Status: mental status grossly normal Assessment & Plan Assessment & Plan (1) Vasovagal syncope: Code(s): R55 - Syncope and collapse (2) Bradycardia: Code(s): R00.1 - Bradycardia, unspecified Plan Baseline EKG has underlying sinus rhythm at 74/Min without any other significant findings. Events from bradycardia event were also previously reviewed. Echocardiogram with LVEF of 67% and no wall motion abnormalities and otherwise unremarkable. In the recent Holter, underlying rhythm was sinus with an average of 70/Min. Minimal 44/Min. No significant bradycardia or AV blocks. Overall, possibly vagal event causing bradycardia and hypotension. We will also get a coronary CTA for further assessment although doubt ischemia precipitating bradycardia. Total time spent including review of data, counseling, documentation, coordination care-31 minutes. Orders: Orders CT Cardiac Coronary Angio Today I25.10 - Atherosclerotic heart disease of [place] coronary artery without angina pectoris Basic Metabolic Panel Today R55 - Syncope and collapse Coding Level of Care Code Est Pt Level 4 (44713) Diagnoses Vasovagal syncope R55 Bradycardia R00.1
[2023-11-20 14:43] VITALS: BP 110/62; PULSE 68; BMI 25.9
== END 2023-11-20 15:03 | disposition home or self-care (01) ==
PROVIDERS: PCP Internal Medicine; Visit Provider Internal Medicine
DX: R55 Syncope and collapse (principal); R00.1 Bradycardia, unspecified
CPT/HCPCS: 99214

== ENCOUNTER → 2023-11-20 14:28 | Outpatient (BNVA) | payer OTHER, SELFPAY | PROVIDERS: PCP Internal Medicine; Visit Provider Internal Medicine | DX: R00.1 Bradycardia, unspecified (principal); R55 Syncope and collapse | CPT/HCPCS: 99212 ==

== ENCOUNTER 2024-07-16 15:04 | Outpatient (AMB) | payer OTHER, SELFPAY ==
--- NOTE | 2024-07-16 15:17 | MHC.OFFVIS ---
Vital Signs 07/16/24 15:18 Height 5 ft 7 in Weight 167 lb 8.821 oz BMI 26.2 BP 116/60 Blood Pressure Location Lt brachial Position Sitting Pulse 73 Pulse Source Monitor Intake Visit Reasons: F/u CTA Allergies No Known Allergies [No Known Allergies*] Allergy (Verified 09/21/23 09:44) HPI Comments Details: 58-year-old male presents today for follow up visit. He had a coronary CT scan back in February. He reports he has been doing well. He denies any chest pains, shortness of breath, dizziness, syncope, or orthopnea. States he runs 2 to 3 times a week. He tries to eat healthy. He is on no cardiac medications. He reports he is going to be going for an endoscopy soon. But referral for gastroenterology has not been made yet. Patient is aware he may need cardiac clearance for this procedure. [facility] Medical History CAD (coronary artery disease) Palpitations Psoriasis Hyperlipidemia PTSD (post-traumatic stress disorder) Depression Hypercalcemia Surgical History S/P left inguinal herniorrhaphy Hx of elbow surgery H/O colonoscopy Family History Mother No problems noted. Father No problems noted. Social History Alcohol intake: current Alcohol intake frequency: holidays/special occasions only Patient Tobacco Use Status: Former Tobacco user Cigarettes Per Day: 2 service: No Review of Systems Const Denies weakness ENT Denies dizziness Card Denies chest pain, Denies chest pain with activity, Denies syncope, Denies rapid heart rate, Denies pedal edema, Denies edema, Denies leg edema, Denies lightheadedness, Denies palpitations, Denies dyspnea, Denies dyspnea on exertion and Denies orthopnea Resp Denies cough, Denies dyspnea and Denies dyspnea on exertion GI Denies hematochezia and Denies change in stool character Musc Denies abnormal gait, Denies muscle cramps, Denies muscle weakness, Denies numbness, Denies radiating pain into limb and Denies tingling Neuro Denies abnormal gait, Denies dizziness, Denies syncope, Denies numbness, Denies tingling and Denies weakness Endo Denies palpitations Physical Exam Vital Signs: Last Vital Signs Pulse 73 07/16/24 15:18 BP 116/60 07/16/24 15:18 BMI result Body Mass Index 26.2 Assessment & Plan Assessment & Plan (1) CAD (coronary artery disease): Comment: 03/06/2024 Left main: no evidence of significant stenosis LAD: Noncalcified plaque of mild stenosis Left circumflex: Noncalcified plaque of minimal up to mild stenosis. RCA: Noncalcified plaque of minimal up to mild doses diffusely through. Nonobstructive. Code(s): I25.10 - Atherosclerotic heart disease of [place] coronary artery without angina pectoris Category: Medical Plan: Nonobstructive coronary artery disease on coronary CT scan. He reports at 1 time his cholesterol levels were over 300. We will send for lipid and basic metabolic update. Heart healthy diet and exercise reviewed. Patient reports understanding. Orders: Orders Lipid Panel 07/16/24 I25.10 - Atherosclerotic heart disease of [place] coronary artery without angina pectoris Basic Metabolic Panel 07/16/24 I25.10 - Atherosclerotic heart disease of [place] coronary artery without angina pectoris Coding Level of Care Code Est Pt Level 3 (13383) Diagnoses CAD (coronary artery disease) I25.10
[2024-07-16 15:18] VITALS: BP 116/60; PULSE 73; BMI 26.2
== END 2024-07-16 15:47 | disposition home or self-care (01) ==
PROVIDERS: PCP Internal Medicine; Visit Provider Nurse Practitioner
DX: I25.10 Atherosclerotic heart disease of native coronary artery without angina pectoris (principal)
CPT/HCPCS: 99213

== ENCOUNTER → 2024-07-16 15:04 | Outpatient (BNVA) | payer OTHER, SELFPAY | PROVIDERS: PCP Internal Medicine; Visit Provider Nurse Practitioner | DX: I25.10 Atherosclerotic heart disease of native coronary artery without angina pectoris (principal) | CPT/HCPCS: 99212 ==

== ENCOUNTER 2024-09-10 11:34 | Day surgery (SDC) | payer OTHER, SELFPAY ==
[2024-09-10 11:50] VITALS: BMI 25.4
[2024-09-10] MEDS: Lactated Ringers 1,000 ML 100 ML IVCONT (11:54)
[2024-09-10 12:04] VITALS: BP 127/67; PULSE 73; RESP 18; TEMP 36.7; O2SAT 98
--- NOTE | 2024-09-10 12:15 | MHC.SHP ---
Pre-Procedural Eval Section A - 24 Hr Update-Section A only Date of Service: 09/10/24 The patient is an INPATIENT: No Changes since office visit: Yes Cold of Flu in the past 2 weeks, Yes New Medical Problems, Yes Changes in Medication and Yes Patient answered all questions The patient has been examined within 24 hours of the surgical procedure. The History & Physical has been completed within 30 days and I have reviewed it.: Yes Section B - Complete if H&P > 30 days Chief Complaint: Upper abdominal pain, unspecified Allergies: Allergies Allergy/AdvReac Type Severity Reaction Status Date / Time No Known Allergies Allergy Verified 09/10/24 11:51 [No Known Allergies*] Plan I have reviewed the history and physical and performed a pertinent physical examination on my patient. No changes have occurred unless specified. Time Spent With Patient Time: Total time managing care of this patient today ____ minutes.
--- NOTE | 2024-09-10 13:05 | P.CONAN_ITS ---
Documented by User: Domonique Roberts NP 09/09/24 09:54 HPI - Anesthesia Eval Consult details Narrative: 09/2023: pt for endoscopy, after getting IV access, heart rate dropped into the 20s and 30s. Possible junctional rhythm but that was not recorded. Blood pressure also dropped into the 70s. Then he was sent to the ER and then admitted. Hospital course: Patient was observed overnight with no further episodes of bradycardia or hypotension. He was evaluated by cardiology with working diagnosis of vasovagal episode and will have further work up on outpatient basis Subsequently seen by cardiology outpatient. W/U showed nonobstructive CAD [facility] Active Problems Active Problems: All Active Problems CAD (coronary artery disease) (Acute) Vasovagal syncope (Acute) Past Medical History Medical History CAD (coronary artery disease) Palpitations Psoriasis Hyperlipidemia PTSD (post-traumatic stress disorder) Depression Hypercalcemia Family History Family History Mother No problems noted. Father No problems noted. Surgical History Surgical History S/P left inguinal herniorrhaphy Hx of elbow surgery H/O colonoscopy Social History Social History Are you a primary district manager primary care sales to a significant other at home: No Do you presently have visiting nurse or other home services: No Alcohol intake: current Alcohol intake frequency: holidays/special occasions only Patient Tobacco Use Status: Former Tobacco user Cigarettes Per Day: 2 Have you been hit, kicked, punched, or otherwise hurt by someone within the past year? If so, by whom?: No Are you DNR?: No Advance Directives: No Advance Directives Information Provided: Yes Recently lost weight without trying: No Nutrition Risks: No Nutritional Risk service: No Meds Allergies Allergy/AdvReac Type Severity Reaction Status Date / Time No Known Allergies Allergy Verified 09/10/24 11:51 [No Known Allergies*] Home Medications ?Medication ?Instructions ?Recorded ?Confirmed ?Last Taken ?Type sertraline 100 mg tablet 100 mg PO DAILY 11/20/23 09/08/24 Unknown History Exam Narrative Narrative: Per outpatient cardiology office visit: Baseline EKG has underlying sinus rhythm at 74/Min without any other significant findings. Events from bradycardia event were also previously reviewed. Echocardiogram with LVEF of 67% and no wall motion abnormalities and otherwise unremarkable. In the recent Holter, underlying rhythm was sinus with an average of 70/Min. Minimal 44/Min. No significant bradycardia or AV blocks. Coronary CT 03/06/2024 Left main: no evidence of significant stenosis LAD: Noncalcified plaque of mild stenosis Left circumflex: Noncalcified plaque of minimal up to mild stenosis. RCA: Noncalcified plaque of minimal up to mild doses diffusely through. Nonobstructive. Assessment and Plan Assessment Anesthesia Assessment: Chart Reviewed Documented by User: Sheba Man DO 09/10/24 13:10 HPI - Anesthesia Eval Consult details Narrative: 58 yo M presenting for EGD. 09/2023: pt for endoscopy, after getting IV access, heart rate dropped into the 20s and 30s. Possible junctional rhythm but that was not recorded. Blood pressure also dropped into the 70s. Then he was sent to the ER and then admitted. Hospital course: Patient was observed overnight with no further episodes of bradycardia or hypotension. He was evaluated by cardiology with working diagnosis of vasovagal episode and will have further work up on outpatient basis Subsequently seen by cardiology outpatient. W/U showed nonobstructive CAD [facility] Past Medical History Medical History CAD (coronary artery disease) Palpitations Psoriasis Hyperlipidemia PTSD (post-traumatic stress disorder) Depression Hypercalcemia Family History Family History Mother No problems noted. Father No problems noted. Family history of problems with anesthesia: No Surgical History Surgical History S/P left inguinal herniorrhaphy Hx of elbow surgery H/O colonoscopy History of Problems with Anesthesia: No Social History Social History Are you a primary district manager primary care sales to a significant other at home: No Do you presently have visiting nurse or other home services: No Alcohol intake: current Alcohol intake frequency: holidays/special occasions only Patient Tobacco Use Status: Former Tobacco user Cigarettes Per Day: 2 Have you been hit, kicked, punched, or otherwise hurt by someone within the past year? If so, by whom?: No Are you DNR?: No Advance Directives: No Advance Directives Information Provided: Yes Recently lost weight without trying: No Nutrition Risks: No Nutritional Risk service: No Meds Allergies Allergy/AdvReac Type Severity Reaction Status Date / Time No Known Allergies Allergy Verified 09/10/24 11:51 [No Known Allergies*] Home Medications ?Medication ?Instructions ?Recorded ?Confirmed ?Last Taken ?Type sertraline 100 mg tablet 100 mg PO DAILY 11/20/23 09/08/24 Unknown History Exam Exam Date and Time: 09/10/24 1300 Height,Weight and Vital Signs: Height 5 ft 7 in Weight 73.482 kg Vital Signs Temperature 98.0 F 09/10/24 12:04 Pulse Rate 73 09/10/24 12:04 Respiratory Rate 18 09/10/24 12:04 Blood Pressure 127/67 09/10/24 12:04 Pulse Oximetry 98 09/10/24 12:04 Oxygen Delivery Method Room Air 09/10/24 12:04 Temperature 98.0 F 09/10/24 12:04 Pulse Rate 73 09/10/24 12:04 Respiratory Rate 18 09/10/24 12:04 Blood Pressure 127/67 09/10/24 12:04 Pulse Oximetry 98 09/10/24 12:04 Oxygen Delivery Method Room Air 09/10/24 12:04 Airway Mallampati Class: I TM Dist: >3cm Neck ROM: Full Loose/Missing/Broken Teeth: No (patient denies any loose or broken teeth) Heart: S1S2 Lungs: CTAB Assessment and Plan Assessment Anesthesia Assessment: Anesthesia Plan Discussed and Chart Reviewed Final Anesthetic Review Family History of Problems with Anesthesia: No History of Problems with Anesthesia: No NPO: Yes ASA Class: II Final Preanesthetic Review: No Changes in Pt Med Stat, Meds/Allgs Chart Reviewed, Consent Obtained/Reviewed and Anes Risks/Benef Reviewed Patient Risk: Low Procedure Risk: Low Anesthetic Plan Anesthetic Plan: MAC: and Agree w/ Assess. and Plan Disposition: Standard PACU
[2024-09-10 13:54] VITALS: BP 95/62; PULSE 98; RESP 16; TEMP 36.2; O2SAT 98
[2024-09-10 14:09] VITALS: BP 114/68; PULSE 81; RESP 16; O2SAT 98
[2024-09-10 14:25] VITALS: BP 118/79; PULSE 85; RESP 16; TEMP 36.2; O2SAT 100
--- NOTE | 2024-09-10 15:06 | OP_ITS ---
DATE OF SERVICE: 09/10/2024 SURGEON: Horacio Awad MD INDICATIONS: H pylori infection, weight loss, upper abdominal pain. PREOPERATIVE DIAGNOSIS: POSTOPERATIVE DIAGNOSIS: PROCEDURE PERFORMED: Upper endoscopy with biopsy. ESTIMATED BLOOD LOSS: COMPLICATIONS: ANESTHESIA: Monitored anesthesia care. ASSISTANTS: SPECIMENS: DESCRIPTION OF PROCEDURE: A history and physical was performed. The risks and benefits of the procedure were explained to the patient and informed consent was obtained. The patient was placed in the left lateral decubitus position. The Olympus video gastroscope was introduced into the esophagus, stomach, and duodenum. Examination was performed and the scope was removed. He tolerated the procedure well and was returned to recovery area in stable condition. FINDINGS: Esophagus: The esophagus was normal. There was no esophagitis. The EG junction was slightly irregular and this was biopsied. Stomach: The stomach showed no evidence of masses, ulcers, or polyps. Antral biopsies were obtained because of the patient's prior history of H pylori infection. Duodenum: The bulb and second portion were normal. Biopsies were obtained because of the patient's weight loss. IMPRESSION: Normal upper endoscopy. RECOMMENDATION: Follow up the biopsy results. MD NORY Begum/ZULEIMA / [id number] MTDD
== END 2024-09-10 14:48 | disposition home or self-care (01) ==
PROVIDERS: Visit Provider Internal Medicine Gastroenterology
PROC: 0DJ08ZZ Inspection of Upper Intestinal Tract, Via Natural or Artificial Opening Endoscopic (ICD-10-PCS; CPT 43235; principal; 2024-09-10 13:00)
DX: R10.10 Upper abdominal pain, unspecified (principal); K29.60 Other gastritis without bleeding; Z86.19 Personal history of other infectious and parasitic diseases; R63.4 Abnormal weight loss; Z68.26 Body mass index [BMI] 26.0-26.9, adult; Z79.899 Other long term (current) drug therapy
CPT/HCPCS: 43239; 88305; 88313; 88342; J1100; J1596; J2003; J2704

== ENCOUNTER 2025-07-23 08:31 | Outpatient (AMB) | payer OTHER, SELFPAY ==
[2025-07-23 08:39] VITALS: BP 120/60; PULSE 70; BMI 25.3
--- NOTE | 2025-07-23 08:39 | MHC.OFFVIS ---
Vital Signs 07/23/25 08:39 Height 5 ft 7 in Weight 161 lb 13.109 oz BMI 25.3 BP 120/60 Blood Pressure Location Lt brachial Position Sitting Pulse 70 Pulse Source Monitor Intake Visit Reasons: 1 yr f/up Clinical Practitioner Required: No Accompanied by: Self / Same As Patient Allergies No Known Allergies (No Known Allergies*) Allergy (Verified 07/23/25 08:41) Medication List - Last Reconciled 07/23/25 by Parag Boston MD sertraline 100 mg PO DAILY HPI Comments Details: Michael returns for follow-up. To recall, he actually came to the hospital for an elective endoscopy. Initially, he was doing well but then after getting IV access, heart rate dropped into the 20s and 30s. Possible junctional rhythm but that was not recorded. Blood pressure also dropped into the 70s. Then he was sent to the ER and then admitted. Subsequently, discharged home and he has been doing fine. No new issues. No syncopal episodes. He is extremely active with no limitations. He has completed workup including Holter, echocardiogram, coronary CTA. [facility] Medical History CAD (coronary artery disease) Palpitations Psoriasis Hyperlipidemia PTSD (post-traumatic stress disorder) Depression Hypercalcemia Surgical History S/P left inguinal herniorrhaphy Hx of elbow surgery H/O colonoscopy Family History Mother No problems noted. Father No problems noted. Social History Are you a primary child care teacher to a significant other at home: No Do you presently have visiting nurse or other home services: No Alcohol intake: current Alcohol intake frequency: holidays/special occasions only Patient Tobacco Use Status: Former Tobacco user Cigarettes Per Day: 2 service: No Review of Systems Const Denies daytime sleepiness, Denies difficulty sleeping, Denies snoring, Denies stops breathing during sleep and Denies weakness Card Denies chest pain, Denies rapid heart rate, Denies irregular heart rhythm, Denies claudication, Denies leg edema, Denies lightheadedness, Reports palpitations, Denies dyspnea, Denies orthopnea, Denies paroxysmal nocturnal dyspnea and Denies slow heart rate Resp Denies cough, Denies dyspnea and Denies snoring GI Reports no additional complaints, Denies hematochezia, Denies change in stool character and Denies dyspepsia Musc Denies abnormal gait, Denies muscle weakness and Denies numbness Neuro Denies abnormal gait, Denies numbness and Denies weakness Endo Reports palpitations Physical Exam Vital Signs: Last Vital Signs Pulse 70 07/23/25 08:39 BP 120/60 07/23/25 08:39 BMI result Body Mass Index 25.3 Const General: comfortable and no acute distress Orientation/consciousness: patient oriented x3 HEENT Other: Unremarkable Head: Yes normal to inspection Neck Neck: Yes normal visual inspection Chest Chest palpation & inspection: normal inspection of the chest Resp Auscultation: clear to auscultation bilaterally Cardio Palpation: normal PMI Heart sounds: S1 normal heart sound present, S2 normal heart sound present, no gallops, no murmurs and no rubs GI Palpation (GI): Soft to palpation Back/Spine/Pelvis Other: unremarkable Skin General skin exam: no rashes or lesions noted Neuro General: patient oriented x3 Extrem General: Yes normal to inspection Psych Mental Status: mental status grossly normal Office Procedures EKG Details: EKG with underlying sinus rhythm at 70/Min; no ischemic changes; [place] [id number], Complete Assessment & Plan Assessment & Plan (1) Vasovagal syncope: Code(s): R55 - Syncope and collapse Category: Medical (2) Bradycardia: Code(s): R00.1 - Bradycardia, unspecified Category: Medical (3) CAD (coronary artery disease): Code(s): I25.10 - Atherosclerotic heart disease of [place] coronary artery without angina pectoris Category: Medical Plan Cardiac studies reviewed. Echocardiogram with LVEF of 67% and no wall motion abnormalities and otherwise unremarkable. In the Holter, underlying rhythm was sinus with an average of 70/Min. Minimal 44/Min. No significant bradycardia or AV blocks. In the coronary CTA, mostly mild stenosis; in the mid to distal circumflex, [id number]. 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 Overall, suspected vagal event with no recurrence. With regard to the mild coronary disease, he [facility] and likely start statins. Advised to discuss with own physician. He will call us with any ongoing concerns. Coding Level of Care Code Est Pt Level 3 (55984) Diagnoses Vasovagal syncope R55 Bradycardia R00.1 CAD (coronary artery disease) I25.10 CPT Codes EKG - CPT: 73988-[id number], Complete ([id number])
== END 2025-07-23 08:59 | disposition home or self-care (01) ==
LOC: HO.HCS 08:31
PROVIDERS: PCP Internal Medicine; Referring Provider Internal Medicine; Visit Provider Internal Medicine
DX: R55 Syncope and collapse (principal); R00.1 Bradycardia, unspecified; I25.10 Atherosclerotic heart disease of native coronary artery without angina pectoris
CPT/HCPCS: 93010; 99213

== ENCOUNTER → 2025-07-23 08:31 | Outpatient (BNVA) | payer OTHER, SELFPAY | PROVIDERS: PCP Internal Medicine; Visit Provider Internal Medicine | DX: R55 Syncope and collapse (principal); R00.1 Bradycardia, unspecified; I25.10 Atherosclerotic heart disease of native coronary artery without angina pectoris | CPT/HCPCS: 93005; 99212 ==